=== PATIENT | male | born 1960 | race African-American/Black ===

== ENCOUNTER 2021-10-21 21:56 | Inpatient (IN) | payer BC, OTHER ==
[~2021-10-21] VITALS: Ht 175.3 cm; Wt 88.5 kg
[~2021-10-21 21:56] MED LIST: AMA4; AMLO10TA80; ENAL20TA18; ESOM40CA; SITA1TAB8
[2021-10-21] MEDS ORDERED: IPRATROPIUM BROMIDE (0.02%) 0.5MG/2.5ML NEB HHN STA (22:01)
[2021-10-21] MEDS ORDERED: METHYLPREDNISOLONE SOD SUCC 125 MG/2 ML VIAL IV STA (22:01)
[2021-10-21] MEDS ORDERED: ALBUTEROL (0.083%) 2.5MG/3ML NEB HHN STA (22:01)
[2021-10-21] MEDS ORDERED: MAGNESIUM 2 G PREMIX 50 ML IV ONE (22:15)
[2021-10-21 22:35] LABS: BASOPHILS % 0.4 % (0.0-2.0); EOSINOPHILS % 1.8 % (0.0-5.0); HEMATOCRIT. 24.9 % (42.0-52.0); HEMOGLOBIN. 8.2 g/dL (14.0-18.0); MEAN CORPUSCULAR HEMOGLOBIN 26.9 pg (28.0-32.0); MEAN CORPUSCULAR VOLUME 81.1 fL (80.0-94.0); MEAN PLATELET VOLUME 7.6 fl (7.4-10.4); MONOCYTES % 7.6 % (2.0-8.0); NEUTROPHILS % 76.2 % (40.0-76.0); PLATELET 456 x1000/uL (130-400); RED BLOOD CELL COUNT 3.06 mill/uL (4.7-6.1); RED CELL DISTRIBUTION WIDTH 15.8 % (11.6-14.6)
[2021-10-21 22:43] LABS: CHLORIDE 105 mEq/L (98-107)
[2021-10-21] MEDS ORDERED: FUROSEMIDE 40MG/4ML VIAL IVP NR (23:15)
[2021-10-21] MEDS ORDERED: VANCOMYCIN 1 G PREMIX 200 ML IV NR (23:15)
[2021-10-21] MEDS ORDERED: PIPERACILLIN/TAZ 3.375G PREMIX 50 ML IV NR (23:15)
[2021-10-21] MEDS ORDERED: NITROGLYCERIN OINT 1GM/INCH UDPKT TD NR (23:15)
[2021-10-21] MEDS ORDERED: SODIUM POLYSTYRENE SULFONATE 15 G/60 ML BOT PO ONE (23:45)
[2021-10-22] MEDS ORDERED: ASPIRIN 81MG TABLET PO SCH (05:00)
[2021-10-22] MEDS ORDERED: METOPROLOL TARTRATE 50MG TABLET PO SCH (09:00)
[2021-10-22] MEDS ORDERED: DEXTROSE 50% WATER 50ML SYRINGE IV PRN (09:45)
[2021-10-22 09:49] LABS: BG BASE EXCESS -9.2 mmol/L (-2.0-2.0); BG CARBOXYHEMOGLOBIN 0.3 % (0.5-1.5); BG DEOXYHEMOGLOBIN 0.8 % (0.0-5.0); BG FRACTION INSPIRED OXYGEN 100; BG HCO3 ACT 15.9 mmol/L (22.0-26.0); BG METHEMOGLOBIN 0.3 % (0.0-1.5); BG OXYGEN SATURATION 99.2 % (92.0-98.5); BG OXYHEMOGLOBIN 98.6 % (94.0-97.0); BG PCO2 31.3 mmHg (35.0-45.0); BG PH 7.323 (7.350-7.450); BG PO2 265.6 mmHg (75.0-100.0); BG SAMPLE SITE LEFT RADIAL; BG TOTAL HEMOGLOBIN 8.8 g/dL (12.0-18.0); BG VENT MODE MASK - BIPAP
[2021-10-22] MEDS: BLOOD SUGAR DIAGNOSTIC STRIP TEST SCH ×3 (10:04→21:05)
[2021-10-22] MEDS: INSULIN LISPRO 100 UNITS/ML SUBCUT SCH ×3 (10:10→21:05)
[2021-10-22] MEDS ORDERED: IPRATROPIUM/ALBUTEROL 0.5-3(2.5)MG/3ML NEB HHN PRN (10:45)
[2021-10-22] MEDS ORDERED: ACETAMINOPHEN 325MG TABLET PO PRN (11:15)
[2021-10-22] MEDS ORDERED: DOCUSATE SODIUM 100MG CAPSULE PO PRN (11:15)
[2021-10-22] MEDS ORDERED: CLONIDINE 0.1MG TABLET PO PRN ×2 (11:15→13:00)
[2021-10-22] MEDS ORDERED: ONDANSETRON HCL 4MG/2ML INJ IV PRN (11:15)
[2021-10-22] MEDS ORDERED: HYDROCODONE/ACETAMINOPHEN 5/325MG TABLET PO PRN (11:15)
[2021-10-22] MEDS ORDERED: MAGNESIUM/ALUMINUM HYDROXIDE/SIMETHICONE 30ML UDC PO PRN (11:15)
[2021-10-22] MEDS ORDERED: FUROSEMIDE 40MG/4ML VIAL IVP SCH (11:30)
[2021-10-22] MEDS ORDERED: NALOXONE HCL 0.4MG/ML VIAL IV PRN (11:30)
[2021-10-22] MEDS ORDERED: CEFTRIAXONE 1 G PREMIX 50 ML IV SCH (12:00)
[2021-10-22] MEDS: FUROSEMIDE 40MG/4ML VIAL IVP SCH ×2 (12:14→18:02)
[2021-10-22 14:13] LABS: TOTAL IRON BINDING CAPACITY 210 ug/dL (250-450)
[2021-10-22 14:30] LABS: FOLIC ACID (FOLATE) SERUM 17.3 ng/mL (>5.38)
[2021-10-22] MEDS: HYDRALAZINE HCL 50MG TABLET PO SCH ×2 (14:51→22:26)
[2021-10-22] MEDS: CITRIC ACID/SODIUM CITRATE SOLN 30ML UDC PO SCH ×2 (14:51→18:02)
[2021-10-22 16:00] VITALS: BP 120/54
[2021-10-22 16:16] VITALS: BP 120/94
[2021-10-22] MEDS ORDERED: HYDR100T26 MT (17:03)
[2021-10-22] MEDS ORDERED: PRAV10TA35 PO (17:03)
[2021-10-22] MEDS ORDERED: CHOL400D7 PO (17:03)
[2021-10-22] MEDS ORDERED: SITA25TA3 PO (17:03)
[2021-10-22] MEDS ORDERED: PRO1 PO (17:03)
[2021-10-22] MEDS ORDERED: PATI16.8 PO (17:03)
[2021-10-22] MEDS ORDERED: CLOP-31 MT (17:03)
[2021-10-22] MEDS ORDERED: SODI650T PO (17:03)
[2021-10-22 17:05] LABS: CLARITY URINE CLEAR (CLEAR); COLOR URINE YELLOW (YELLOW); KETONES URINE NEGATIVE (NEGATIVE); LEUKOCYTE ESTERASE URINE NEGATIVE (NEGATIVE); NITRITE URINE NEGATIVE (NEGATIVE); OCCULT BLOOD URINE NEGATIVE (NEGATIVE); PROTEIN URINE 3+ (NEGATIVE); SPECIFIC GRAVITY URINE 1.016 (1.005-1.030); UROBILINOGEN URINE 0.2 E.U./dL (0.2-1.0)
[2021-10-22 17:26] LABS: *AMPHETAMINES SCREEN URINE NEGATIVE (NEGATIVE); *BARBITURATES SCREEN URINE NEGATIVE (NEGATIVE); *BENZODIAZEPINES SCREEN URINE NEGATIVE (NEGATIVE); *COCAINE SCREEN URINE NEGATIVE (NEGATIVE); METHADONE URINE SCREEN NEGATIVE (NEGATIVE)
[2021-10-22 17:27] LABS: CANNABINOID URINE SCREEN NEGATIVE (NEGATIVE); OPIATES URINE SCREEN NEGATIVE (NEGATIVE); PHENCYCLIDINE URINE SCREEN NEGATIVE (NEGATIVE)
[2021-10-22 20:00] VITALS: BP 121/49
[2021-10-22] MEDS: CARVEDILOL 12.5MG TABLET PO SCH (21:04)
[2021-10-22] MEDS ORDERED: VANCOMYCIN 1500MG in DEXTROSE 5% WATER 250ML IV NR (23:00)
[2021-10-22 23:18] LABS: CREATINE KINASE MB FRACTION 25.5 ng/mL (0.5-3.6)
[2021-10-23] VITALS: BP 103/43
[2021-10-23 04:00] VITALS: BP 112/54
[2021-10-23] MEDS: BLOOD SUGAR DIAGNOSTIC STRIP TEST SCH ×4 (05:50→21:15)
[2021-10-23] MEDS: HYDRALAZINE HCL 50MG TABLET PO SCH ×3 (05:50→21:15)
[2021-10-23] MEDS: INSULIN LISPRO 100 UNITS/ML SUBCUT SCH ×4 (05:50→21:17)
[2021-10-23 06:21] LABS: CHLORIDE 108 mEq/L (98-107)
[2021-10-23 06:22] LABS: BASOPHILS % 0.4 % (0.0-2.0); EOSINOPHILS % 1.4 % (0.0-5.0); HEMOGLOBIN. 7.3 g/dL (14.0-18.0); MEAN CORPUSCULAR HEMOGLOBIN 27.4 pg (28.0-32.0); MEAN CORPUSCULAR VOLUME 82.5 fL (80.0-94.0); MEAN PLATELET VOLUME 7.4 fl (7.4-10.4); MONOCYTES % 10.9 % (2.0-8.0); NEUTROPHILS % 69.3 % (40.0-76.0); PLATELET 401 x1000/uL (130-400); RED BLOOD CELL COUNT 2.67 mill/uL (4.7-6.1)
[2021-10-23 06:31] LABS: LDL CHOLESTEROL 111 mg/dL (5-100); PHOSPHORUS 6.6 mg/dL (2.5-4.9)
[2021-10-23 06:32] LABS: HDL CHOLESTEROL 50 mg/dL (40-59)
[2021-10-23 06:33] LABS: T4 FREE 0.93 ng/dL (0.76-1.46)
[2021-10-23 08:00] VITALS: BP 130/57
[2021-10-23] MEDS: PANTOPRAZOLE SODIUM 40 MG/VIAL IV SCH (09:35)
[2021-10-23] MEDS: METOLAZONE 2.5MG TABLET PO SCH (09:35)
[2021-10-23] MEDS: FUROSEMIDE 40MG/4ML VIAL IVP SCH ×2 (09:35→17:56)
[2021-10-23] MEDS: CITRIC ACID/SODIUM CITRATE SOLN 30ML UDC PO SCH ×3 (09:35→17:56)
[2021-10-23] MEDS: CARVEDILOL 12.5MG TABLET PO SCH (09:36)
[2021-10-23 12:00] VITALS: BP 138/53
[2021-10-23] MEDS: CEFTRIAXONE 1,000 MG in DEXTROSE 5% WATER 50 ML IV SCH (12:45)
[2021-10-23] MEDS: CALCIUM ACETATE 667MG CAPSULE PO SCH ×2 (12:45→17:56)
[2021-10-23 16:09] VITALS: BP 124/74
[2021-10-23] MEDS: DILTIAZEM HCL 60MG TABLET PO SCH (17:56)
[2021-10-23 20:00] VITALS: BP 148/55
[2021-10-23] MEDS: EPOETIN ALFA-EPBX 10,000 UNIT/ML VIAL SUBCUT SCH ×2 (21:00→21:15)
[2021-10-24] VITALS: BP 133/54
[2021-10-24 04:00] VITALS: BP 114/54
[2021-10-24] MEDS: HYDRALAZINE HCL 50MG TABLET PO SCH ×3 (06:10→21:33)
[2021-10-24] MEDS: BLOOD SUGAR DIAGNOSTIC STRIP TEST SCH ×4 (06:10→20:57)
[2021-10-24] MEDS: DILTIAZEM HCL 60MG TABLET PO SCH ×5 (06:10→23:36)
[2021-10-24] MEDS: FUROSEMIDE 40MG/4ML VIAL IVP SCH ×2 (06:10→17:50)
[2021-10-24] MEDS: CALCIUM ACETATE 667MG CAPSULE PO SCH ×3 (06:10→17:49)
[2021-10-24] MEDS: INSULIN LISPRO 100 UNITS/ML SUBCUT SCH ×4 (06:13→21:34)
[2021-10-24 07:38] LABS: CHLORIDE 105 mEq/L (98-107)
[2021-10-24 07:41] LABS: BASOPHILS % 0.5 % (0.0-2.0); EOSINOPHILS % 2.4 % (0.0-5.0); HEMATOCRIT. 22.5 % (42.0-52.0); HEMOGLOBIN. 7.6 g/dL (14.0-18.0); LYMPHOCYTES % 24.2 % (20.0-50.0); MEAN CORPUSCULAR HEMOGLOBIN 27.3 pg (28.0-32.0); MEAN CORPUSCULAR VOLUME 80.5 fL (80.0-94.0); MEAN PLATELET VOLUME 7.5 fl (7.4-10.4); MONOCYTES % 9.1 % (2.0-8.0); NEUTROPHILS % 63.8 % (40.0-76.0); PLATELET 422 x1000/uL (130-400); RED BLOOD CELL COUNT 2.79 mill/uL (4.7-6.1); RED CELL DISTRIBUTION WIDTH 16.2 % (11.6-14.6)
[2021-10-24 07:53] LABS: PHOSPHORUS 6.5 mg/dL (2.5-4.9)
[2021-10-24 08:00] VITALS: BP 122/49
[2021-10-24] MEDS: PANTOPRAZOLE SODIUM 40 MG/VIAL IV SCH (10:06)
[2021-10-24] MEDS: CITRIC ACID/SODIUM CITRATE SOLN 30ML UDC PO SCH ×3 (10:06→17:49)
[2021-10-24] MEDS: METOLAZONE 2.5MG TABLET PO SCH (10:06)
[2021-10-24 12:00] VITALS: BP 132/53
[2021-10-24] MEDS: CEFTRIAXONE 1,000 MG in DEXTROSE 5% WATER 50 ML IV SCH (12:35)
[2021-10-24 16:00] VITALS: BP 127/55
[2021-10-24 20:00] VITALS: BP 145/56
[2021-10-25] VITALS: BP 149/61
[2021-10-25 04:00] VITALS: BP 129/54
[2021-10-25] MEDS: DILTIAZEM HCL 60MG TABLET PO SCH ×4 (05:19→23:45)
[2021-10-25] MEDS: HYDRALAZINE HCL 50MG TABLET PO SCH ×3 (05:20→23:45)
[2021-10-25] MEDS: INSULIN LISPRO 100 UNITS/ML SUBCUT SCH ×4 (06:45→23:49)
[2021-10-25] MEDS: BLOOD SUGAR DIAGNOSTIC STRIP TEST SCH ×4 (06:46→21:00)
[2021-10-25] MEDS: CALCIUM ACETATE 667MG CAPSULE PO SCH ×3 (06:46→18:18)
[2021-10-25] MEDS: FUROSEMIDE 40MG/4ML VIAL IVP SCH ×2 (06:46→18:18)
[2021-10-25 07:15] LABS: BASOPHILS % 0.6 % (0.0-2.0); EOSINOPHILS % 1.9 % (0.0-5.0); HEMATOCRIT. 21.1 % (42.0-52.0); HEMOGLOBIN. 7.3 g/dL (14.0-18.0); LYMPHOCYTES % 18.6 % (20.0-50.0); MEAN CORPUSCULAR HEMOGLOBIN 27.7 pg (28.0-32.0); MEAN CORPUSCULAR VOLUME 79.7 fL (80.0-94.0); MEAN PLATELET VOLUME 7.4 fl (7.4-10.4); MONOCYTES % 9.8 % (2.0-8.0); NEUTROPHILS % 69.1 % (40.0-76.0); PLATELET 398 x1000/uL (130-400); RED BLOOD CELL COUNT 2.64 mill/uL (4.7-6.1); RED CELL DISTRIBUTION WIDTH 16.6 % (11.6-14.6)
[2021-10-25 08:00] VITALS: BP 129/44
[2021-10-25] MEDS: METOLAZONE 2.5MG TABLET PO SCH (09:13)
[2021-10-25] MEDS: CITRIC ACID/SODIUM CITRATE SOLN 30ML UDC PO SCH ×3 (09:13→18:18)
[2021-10-25 12:00] VITALS: BP 136/58
[2021-10-25] MEDS: CEFTRIAXONE 1,000 MG in DEXTROSE 5% WATER 50 ML IV SCH (12:24)
[2021-10-25] MEDS: PANTOPRAZOLE SODIUM 40 MG/VIAL IV SCH (12:29)
[2021-10-25 16:00] VITALS: BP 130/57
[2021-10-25 20:00] VITALS: BP 150/69
[2021-10-26] MEDS: EPOETIN ALFA-EPBX 10,000 UNIT/ML VIAL SUBCUT SCH
[2021-10-26 00:03] VITALS: BP 138/56
[2021-10-26] MEDS: HYDRALAZINE HCL 50MG TABLET PO SCH ×2 (06:07→15:33)
[2021-10-26] MEDS: DILTIAZEM HCL 60MG TABLET PO SCH ×3 (06:08→17:03)
[2021-10-26] MEDS: BLOOD SUGAR DIAGNOSTIC STRIP TEST SCH ×3 (06:10→16:46)
[2021-10-26] MEDS: CALCIUM ACETATE 667MG CAPSULE PO SCH ×3 (06:49→16:47)
[2021-10-26] MEDS: FUROSEMIDE 40MG/4ML VIAL IVP SCH ×2 (06:50→16:47)
[2021-10-26] MEDS: INSULIN LISPRO 100 UNITS/ML SUBCUT SCH ×3 (06:50→16:52)
[2021-10-26 08:00] VITALS: BP 141/54
[2021-10-26] MEDS ORDERED: LIDOCAINE HCL 1% 10 MG/ML 10ML VIAL ONE (08:30)
[2021-10-26 09:46] LABS: BASOPHILS % 0.6 % (0.0-2.0); EOSINOPHILS % 2.1 % (0.0-5.0); HEMATOCRIT. 21.3 % (42.0-52.0); HEMOGLOBIN. 7.4 g/dL (14.0-18.0); LYMPHOCYTES % 20.7 % (20.0-50.0); MEAN CORPUSCULAR HEMOGLOBIN 27.8 pg (28.0-32.0); MEAN CORPUSCULAR VOLUME 80.3 fL (80.0-94.0); MEAN PLATELET VOLUME 7.7 fl (7.4-10.4); MONOCYTES % 10.4 % (2.0-8.0); NEUTROPHILS % 66.2 % (40.0-76.0); PLATELET 392 x1000/uL (130-400); RED BLOOD CELL COUNT 2.65 mill/uL (4.7-6.1); RED CELL DISTRIBUTION WIDTH 16.1 % (11.6-14.6)
[2021-10-26] MEDS: CITRIC ACID/SODIUM CITRATE SOLN 30ML UDC PO SCH ×3 (09:55→16:56)
[2021-10-26] MEDS: METOLAZONE 2.5MG TABLET PO SCH (09:55)
[2021-10-26] MEDS: PANTOPRAZOLE SODIUM 40 MG/VIAL IV SCH (09:55)
[2021-10-26 12:00] VITALS: BP 148/62
[2021-10-26] MEDS ORDERED: FURO-151 MT (12:53)
[2021-10-26 13:50] VITALS: BP 148/62
[2021-10-26] MEDS: CEFTRIAXONE 1,000 MG in DEXTROSE 5% WATER 50 ML IV SCH (15:32)
== END 2021-10-26 17:11 | disposition home health service (06) | DRG 871 ==
LOC: ER 21:56 → MICUSO 10-22 00:42 → EDBEDREQ 10-22 00:44 → EDBEDREQSVC 10-22 00:48 → EDBEDREQTM 10-22 00:48 → EDBEDREQ 10-22 00:48 → 7EST 10-22 14:45
PROVIDERS: ADMIT Internal Medicine; ATTEND Internal Medicine
PROC: 5A09357 Assistance with Respiratory Ventilation, Less than 24 Consecutive Hours, Continuous Positive Airway Pressure (ICD-10-PCS; 2021-10-21)
PROC: 02HV33Z Insertion of Infusion Device into Superior Vena Cava, Percutaneous Approach (ICD-10-PCS; principal; 2021-10-26)
PROC: B548ZZA Ultrasonography of Superior Vena Cava, Guidance (ICD-10-PCS; 2021-10-26)
DX: A41.1 Sepsis due to other specified staphylococcus (principal); I21.4 Non-ST elevation (NSTEMI) myocardial infarction; J18.9 Pneumonia, unspecified organism; J96.00 Acute respiratory failure, unspecified whether with hypoxia or hypercapnia; I13.0 Hypertensive heart and chronic kidney disease with heart failure and stage 1 through stage 4 chronic kidney disease, or unspecified chronic kidney disease; E44.0 Moderate protein-calorie malnutrition; N17.9 Acute kidney failure, unspecified; N18.4 Chronic kidney disease, stage 4 (severe); I50.30 Unspecified diastolic (congestive) heart failure; I42.9 Cardiomyopathy, unspecified; D64.9 Anemia, unspecified; E78.5 Hyperlipidemia, unspecified; E87.5 Hyperkalemia; Z20.822 Contact with and (suspected) exposure to COVID-19; R74.01 Elevation of levels of liver transaminase levels; I36.1 Nonrheumatic tricuspid (valve) insufficiency; I25.10 Atherosclerotic heart disease of native coronary artery without angina pectoris; I27.20 Pulmonary hypertension, unspecified; E11.22 Type 2 diabetes mellitus with diabetic chronic kidney disease; E11.65 Type 2 diabetes mellitus with hyperglycemia; I25.118 Atherosclerotic heart disease of native coronary artery with other forms of angina pectoris; Z83.3 Family history of diabetes mellitus; Z87.01 Personal history of pneumonia (recurrent); Z87.891 Personal history of nicotine dependence; Z79.899 Other long term (current) drug therapy; Z68.28 Body mass index [BMI] 28.0-28.9, adult; E11.51 Type 2 diabetes mellitus with diabetic peripheral angiopathy without gangrene
CPT/HCPCS: 36415; 36600; 71045; 76700; 76937; 80048; 80053; 80061; 80076; 80202; 80305; 81003; 82375; 82550; 82553; 82607; 82728; 82746; 82805; 82962; 83036; 83540; 83550; 83605; 83735; 83880; 84100; 84145; 84439; 84443; 84484; 85025; 85384; 86140; 87077; 87186; 93005; 93306; 93970; 94640; 94660; 97161; 99291; C1725; C9113; J0696; J0885; J1815; J1940; J2543; J2930; J3370; J3475; J3490; J7060; U0003; U0005

== ENCOUNTER 2021-10-29 07:45 | Inpatient (IN) | payer BC ==
[~2021-10-29] VITALS: Ht 175.3 cm; Wt 93.4 kg
[~2021-10-29 07:45] MED LIST changes: +CHOL400D7 PO; +CLOP-31 MT; +FURO-151 MT; +HYDR100T26 MT; +PATI16.8 PO; +PRAV10TA35 PO; +PRO1 PO; +SITA25TA3 PO; +SODI650T PO
[2021-10-29] MEDS ORDERED: ASPIRIN 81MG TABLET PO ONE (08:15)
[2021-10-29] MEDS ORDERED: NITROGLYCERIN 0.4MG TABLET SL SL PRN ×2 (08:15→12:30)
[2021-10-29 08:44] LABS: BASOPHILS % 0.6 % (0.0-2.0); EOSINOPHILS % 0.9 % (0.0-5.0); HEMATOCRIT. 27.1 % (42.0-52.0); HEMOGLOBIN. 9.1 g/dL (14.0-18.0); LYMPHOCYTES % 8.7 % (20.0-50.0); MEAN CORPUSCULAR HEMOGLOBIN 27.8 pg (28.0-32.0); MEAN CORPUSCULAR VOLUME 83.3 fL (80.0-94.0); MEAN PLATELET VOLUME 7.5 fl (7.4-10.4); MONOCYTES % 7.8 % (2.0-8.0); PLATELET 423 x1000/uL (130-400); RED BLOOD CELL COUNT 3.26 mill/uL (4.7-6.1)
[2021-10-29 08:45] LABS: CHLORIDE 97 mEq/L (98-107)
[2021-10-29] MEDS ORDERED: DOCUSATE SODIUM 100MG CAPSULE PO PRN (12:30)
[2021-10-29] MEDS ORDERED: ENOXAPARIN 40MG/0.4ML SYR SUBCUT SCH (12:30)
[2021-10-29] MEDS ORDERED: GUAIFENESIN 200MG/10ML SUGAR FREE UDC PO PRN (12:30)
[2021-10-29] MEDS ORDERED: IPRATROPIUM/ALBUTEROL 0.5-3(2.5)MG/3ML NEB NEB PRN (12:30)
[2021-10-29] MEDS ORDERED: ZOLPIDEM TARTRATE 5MG TABLET PO PRN (12:30)
[2021-10-29] MEDS ORDERED: ACETAMINOPHEN 325MG TABLET PO PRN ×2 (12:30)
[2021-10-29] MEDS ORDERED: TRAMADOL 50MG TABLET PO PRN (12:30)
[2021-10-29] MEDS ORDERED: MAGNESIUM/ALUMINUM HYDROXIDE/SIMETHICONE 30ML UDC PO PRN (12:30)
[2021-10-29] MEDS ORDERED: CLONIDINE 0.1MG TABLET PO PRN (12:30)
[2021-10-29] MEDS ORDERED: DEXTROSE 50% WATER 50ML SYRINGE IV PRN (12:30)
[2021-10-29] MEDS ORDERED: ONDANSETRON HCL 4MG/2ML INJ IV PRN (12:30)
[2021-10-29] MEDS ORDERED: NALOXONE HCL 0.4MG/ML VIAL IV PRN (13:30)
[2021-10-29] MEDS: BLOOD SUGAR DIAGNOSTIC STRIP TEST SCH ×3 (14:20→21:15)
[2021-10-29] MEDS: INSULIN LISPRO 100 UNITS/ML SUBCUT SCH ×3 (14:25→21:15)
[2021-10-29] MEDS: AMLODIPINE 10MG TABLET PO SCH (14:53)
[2021-10-29] MEDS: FAMOTIDINE 20MG TABLET PO SCH (15:16)
[2021-10-29] MEDS: CLOPIDOGREL 75MG TABLET PO SCH (16:22)
[2021-10-29] MEDS: ENOXAPARIN 30MG/0.3ML SYR SUBCUT SCH (17:07)
[2021-10-29] MEDS: CARVEDILOL 3.125 MG TABLET PO SCH (18:51)
[2021-10-29] MEDS: FUROSEMIDE 40MG/4ML VIAL IVP SCH (21:14)
[2021-10-29] MEDS: ASCORBIC ACID 500 MG TABLET PO SCH (21:14)
[2021-10-29] MEDS: LISINOPRIL 20MG TABLET PO SCH (21:15)
[2021-10-29 23:25] LABS: CREATINE KINASE MB FRACTION 19.7 ng/mL (0.5-3.6)
[2021-10-29 23:35] LABS: FOLIC ACID (FOLATE) SERUM 12.4 ng/mL (>5.38)
[2021-10-30] MEDS: INSULIN LISPRO 100 UNITS/ML SUBCUT SCH ×4 (06:51→20:39)
[2021-10-30] MEDS: BLOOD SUGAR DIAGNOSTIC STRIP TEST SCH ×4 (06:51→20:39)
[2021-10-30] MEDS: CARVEDILOL 3.125 MG TABLET PO SCH ×2 (06:51→17:31)
[2021-10-30] MEDS: ASCORBIC ACID 500 MG TABLET PO SCH ×4 (09:00→22:06)
[2021-10-30] MEDS: ENOXAPARIN 30MG/0.3ML SYR SUBCUT SCH ×2 (09:00→11:30)
[2021-10-30 09:30] VITALS: BP 137/62
[2021-10-30 10:00] VITALS: BP 137/62
[2021-10-30] MEDS ORDERED: CEFTRIAXONE 1 G PREMIX 50 ML IV SCH (10:45)
[2021-10-30] MEDS: FAMOTIDINE 20MG TABLET PO SCH (11:28)
[2021-10-30] MEDS: CHOLECALCIFEROL (D3) 1000 UNIT TABLET PO SCH (11:28)
[2021-10-30] MEDS: ZINC SULFATE 220 MG ( 50 ) CAPSULE PO SCH (11:28)
[2021-10-30] MEDS: AMLODIPINE 10MG TABLET PO SCH (11:29)
[2021-10-30] MEDS: FUROSEMIDE 40MG/4ML VIAL IVP SCH ×2 (11:29→22:06)
[2021-10-30] MEDS: LISINOPRIL 20MG TABLET PO SCH (11:29)
[2021-10-30 12:00] VITALS: BP 137/58
[2021-10-30] MEDS ORDERED: CEFTRIAXONE 1,000 MG in DEXTROSE 5% WATER 50 ML IV SCH (12:00)
[2021-10-30 13:19] LABS: BASOPHILS % 0.7 % (0.0-2.0); EOSINOPHILS % 2.5 % (0.0-5.0); HEMATOCRIT. 25.3 % (42.0-52.0); HEMOGLOBIN. 8.5 g/dL (14.0-18.0); LYMPHOCYTES % 14.1 % (20.0-50.0); MEAN CORPUSCULAR HEMOGLOBIN 27.5 pg (28.0-32.0); MEAN CORPUSCULAR VOLUME 81.8 fL (80.0-94.0); MEAN PLATELET VOLUME 7.6 fl (7.4-10.4); MONOCYTES % 9.4 % (2.0-8.0); NEUTROPHILS % 73.3 % (40.0-76.0); PLATELET 411 x1000/uL (130-400); RED CELL DISTRIBUTION WIDTH 17.4 % (11.6-14.6)
[2021-10-30 13:26] LABS: CHLORIDE 102 mEq/L (98-107)
[2021-10-30 13:30] LABS: PARTIAL THROMBOPLASTIN TIME 27.1 sec (23.4-31.0); PROTHROMBIN TIME 10.7 sec (9.6-11.0)
[2021-10-30 13:32] LABS: PHOSPHORUS 4.9 mg/dL (2.5-4.9)
[2021-10-30] MEDS: ISOSORBIDE MONONITRATE 60MG TABLET SR 24HR PO SCH (13:45)
[2021-10-30] MEDS: HYDRALAZINE HCL 50MG TABLET PO SCH ×2 (14:00→17:00)
[2021-10-30] MEDS ORDERED: LIDOCAINE HCL 1% 10 MG/ML 10ML VIAL ONE (14:19)
[2021-10-30 14:44] LABS: HEPATITIS B SURFACE ANTIGEN NEGATIVE
[2021-10-30] MEDS: CLOPIDOGREL 75MG TABLET PO SCH (15:43)
[2021-10-30 16:00] VITALS: BP 150/64
[2021-10-30 20:00] VITALS: BP 130/52
[2021-10-30] MEDS ORDERED: IPRATROPIUM/ALBUTEROL 0.5-3(2.5)MG/3ML NEB HHN PRN (20:15)
[2021-10-30] MEDS: ATORVASTATIN CALCIUM 20MG TABLET PO SCH (22:06)
[2021-10-30] MEDS: AMLODIPINE 5MG TABLET PO SCH (22:07)
[2021-10-31] VITALS: BP 148/56
[2021-10-31 04:00] VITALS: BP 143/58
[2021-10-31] MEDS: CARVEDILOL 3.125 MG TABLET PO SCH ×2 (06:06→17:57)
[2021-10-31] MEDS: BLOOD SUGAR DIAGNOSTIC STRIP TEST SCH ×4 (06:10→21:54)
[2021-10-31] MEDS: INSULIN LISPRO 100 UNITS/ML SUBCUT SCH ×4 (06:49→22:03)
[2021-10-31 08:00] VITALS: BP 134/46
[2021-10-31] MEDS: ISOSORBIDE MONONITRATE 60MG TABLET SR 24HR PO SCH (09:00)
[2021-10-31] MEDS: ENOXAPARIN 30MG/0.3ML SYR SUBCUT SCH (09:00)
[2021-10-31] MEDS: ASCORBIC ACID 500 MG TABLET PO SCH ×2 (09:00→21:00)
[2021-10-31] MEDS: AMLODIPINE 5MG TABLET PO SCH ×2 (09:00→21:51)
[2021-10-31] MEDS: CHOLECALCIFEROL (D3) 1000 UNIT TABLET PO SCH (09:04)
[2021-10-31] MEDS: HYDRALAZINE HCL 50MG TABLET PO SCH ×3 (09:04→17:00)
[2021-10-31] MEDS: ZINC SULFATE 220 MG ( 50 ) CAPSULE PO SCH (09:04)
[2021-10-31] MEDS: FAMOTIDINE 20MG TABLET PO SCH (09:04)
[2021-10-31] MEDS: CEFTRIAXONE 1,000 MG in DEXTROSE 5% WATER 50 ML IV SCH (09:04)
[2021-10-31] MEDS: CLOPIDOGREL 75MG TABLET PO SCH (09:04)
[2021-10-31] MEDS: FUROSEMIDE 40MG/4ML VIAL IVP SCH ×2 (09:05→21:51)
[2021-10-31 12:00] VITALS: BP 153/51
[2021-10-31 16:30] VITALS: BP 135/46
[2021-10-31 20:00] VITALS: BP 144/55
[2021-10-31] MEDS: ATORVASTATIN CALCIUM 20MG TABLET PO SCH (21:51)
[2021-11-01] VITALS: BP 127/54
[2021-11-01 04:00] VITALS: BP 129/51
[2021-11-01] MEDS: BLOOD SUGAR DIAGNOSTIC STRIP TEST SCH ×4 (06:01→20:20)
[2021-11-01] MEDS: CARVEDILOL 3.125 MG TABLET PO SCH ×2 (06:01→17:26)
[2021-11-01] MEDS: INSULIN LISPRO 100 UNITS/ML SUBCUT SCH ×4 (06:47→20:20)
[2021-11-01 08:00] VITALS: BP 115/77
[2021-11-01] MEDS: ENOXAPARIN 40MG/0.4ML SYR SUBCUT SCH (09:00)
[2021-11-01] MEDS: ISOSORBIDE MONONITRATE 60MG TABLET SR 24HR PO SCH (09:00)
[2021-11-01] MEDS: ASCORBIC ACID 500 MG TABLET PO SCH ×2 (09:00→20:20)
[2021-11-01] MEDS: FAMOTIDINE 20MG TABLET PO SCH (09:18)
[2021-11-01] MEDS: CLOPIDOGREL 75MG TABLET PO SCH (09:18)
[2021-11-01] MEDS: CEFTRIAXONE 1,000 MG in DEXTROSE 5% WATER 50 ML IV SCH (09:18)
[2021-11-01] MEDS: HYDRALAZINE HCL 50MG TABLET PO SCH ×3 (09:24→17:25)
[2021-11-01] MEDS: AMLODIPINE 5MG TABLET PO SCH ×2 (09:25→20:19)
[2021-11-01] MEDS: CHOLECALCIFEROL (D3) 1000 UNIT TABLET PO SCH (09:26)
[2021-11-01] MEDS: FUROSEMIDE 40MG/4ML VIAL IVP SCH ×2 (09:27→20:19)
[2021-11-01] MEDS: ZINC SULFATE 220 MG ( 50 ) CAPSULE PO SCH (09:27)
[2021-11-01 11:57] LABS: HEMATOCRIT 26.1 % (42.0-52.0); HEMOGLOBIN 8.8 g/dL (14.0-18.0); MEAN CORPUSCULAR HEMOGLOBIN 27.9 pg (28.0-32.0); MEAN CORPUSCULAR VOLUME 82.9 fL (80.0-94.0); PLATELET 349 x1000/uL (130-400); RED BLOOD CELL COUNT 3.15 mill/uL (4.7-6.1); RED CELL DISTRIBUTION WIDTH 17.5 % (11.6-14.6)
[2021-11-01 12:00] VITALS: BP 112/55
[2021-11-01] MEDS: IPRATROPIUM/ALBUTEROL 0.5-3(2.5)MG/3ML NEB HHN SCH ×2 (12:00→18:00)
[2021-11-01 16:00] VITALS: BP 126/50
[2021-11-01 20:00] VITALS: BP 125/48
[2021-11-01] MEDS: ATORVASTATIN CALCIUM 20MG TABLET PO SCH (20:19)
[2021-11-02] VITALS: BP_SYST 127; BP_SYST 134; BP_DIAS 45; BP_DIAS 54
[2021-11-02 03:58] VITALS: BP 132/45
[2021-11-02] MEDS: BLOOD SUGAR DIAGNOSTIC STRIP TEST SCH (06:00)
[2021-11-02] MEDS: CARVEDILOL 3.125 MG TABLET PO SCH (06:00)
[2021-11-02] MEDS: INSULIN LISPRO 100 UNITS/ML SUBCUT SCH (06:46)
[2021-11-02 08:00] VITALS: BP 109/40
[2021-11-02] MEDS: IPRATROPIUM/ALBUTEROL 0.5-3(2.5)MG/3ML NEB HHN SCH ×2 (08:00)
[2021-11-02] MEDS: ENOXAPARIN 40MG/0.4ML SYR SUBCUT SCH (09:00)
[2021-11-02] MEDS: AMLODIPINE 5MG TABLET PO SCH (09:00)
[2021-11-02] MEDS: ASCORBIC ACID 500 MG TABLET PO SCH (09:00)
[2021-11-02] MEDS: ISOSORBIDE MONONITRATE 60MG TABLET SR 24HR PO SCH (09:00)
[2021-11-02] MEDS: HYDRALAZINE HCL 50MG TABLET PO SCH ×2 (09:00→11:10)
[2021-11-02] MEDS: CHOLECALCIFEROL (D3) 1000 UNIT TABLET PO SCH (09:21)
[2021-11-02] MEDS: ZINC SULFATE 220 MG ( 50 ) CAPSULE PO SCH (09:21)
[2021-11-02] MEDS: FUROSEMIDE 40MG/4ML VIAL IVP SCH (09:21)
[2021-11-02] MEDS: FAMOTIDINE 20MG TABLET PO SCH (09:24)
[2021-11-02] MEDS: CLOPIDOGREL 75MG TABLET PO SCH (09:25)
[2021-11-02] MEDS: CEFTRIAXONE 1,000 MG in DEXTROSE 5% WATER 50 ML IV SCH (09:27)
[2021-11-02 11:08] VITALS: BP 159/59
[2021-11-02 11:45] VITALS: BP 159/59
== END 2021-11-02 12:08 | disposition home or self-care (01) | DRG 280 ==
LOC: ER 09:20 → MICUSO 10:08 → EDBEDREQ 10:10 → EDBEDREQTM 10:10 → SUPCPDRO 12:17 → 8WST 10-30 10:52
PROVIDERS: ADMIT Internal Medicine; ATTEND Internal Medicine
PROC: 02HV33Z Insertion of Infusion Device into Superior Vena Cava, Percutaneous Approach (ICD-10-PCS; principal; 2021-10-30)
PROC: B548ZZA Ultrasonography of Superior Vena Cava, Guidance (ICD-10-PCS; 2021-10-30)
PROC: 5A1D70Z Performance of Urinary Filtration, Intermittent, Less than 6 Hours Per Day (ICD-10-PCS; 2021-10-30)
PROC: 5A1D70Z Performance of Urinary Filtration, Intermittent, Less than 6 Hours Per Day (ICD-10-PCS; 2021-10-31)
PROC: 5A1D70Z Performance of Urinary Filtration, Intermittent, Less than 6 Hours Per Day (ICD-10-PCS; 2021-11-01)
DX: I13.0 Hypertensive heart and chronic kidney disease with heart failure and stage 1 through stage 4 chronic kidney disease, or unspecified chronic kidney disease (principal); J96.01 Acute respiratory failure with hypoxia; I21.4 Non-ST elevation (NSTEMI) myocardial infarction; N17.0 Acute kidney failure with tubular necrosis; I50.43 Acute on chronic combined systolic (congestive) and diastolic (congestive) heart failure; J18.9 Pneumonia, unspecified organism; E87.1 Hypo-osmolality and hyponatremia; E44.0 Moderate protein-calorie malnutrition; N18.4 Chronic kidney disease, stage 4 (severe); E66.9 Obesity, unspecified; R74.01 Elevation of levels of liver transaminase levels; E83.51 Hypocalcemia; D64.9 Anemia, unspecified; E11.22 Type 2 diabetes mellitus with diabetic chronic kidney disease; E11.51 Type 2 diabetes mellitus with diabetic peripheral angiopathy without gangrene; J44.9 Chronic obstructive pulmonary disease, unspecified; I27.20 Pulmonary hypertension, unspecified; E11.65 Type 2 diabetes mellitus with hyperglycemia; E78.00 Pure hypercholesterolemia, unspecified; E78.5 Hyperlipidemia, unspecified; I25.5 Ischemic cardiomyopathy; Z20.822 Contact with and (suspected) exposure to COVID-19; I07.1 Rheumatic tricuspid insufficiency; I25.118 Atherosclerotic heart disease of native coronary artery with other forms of angina pectoris; Z79.4 Long term (current) use of insulin; Z83.3 Family history of diabetes mellitus; Z86.14 Personal history of Methicillin resistant Staphylococcus aureus infection; Z87.01 Personal history of pneumonia (recurrent); Z88.1 Allergy status to other antibiotic agents; Z79.899 Other long term (current) drug therapy; Z89.421 Acquired absence of other right toe(s); Z89.432 Acquired absence of left foot; Z68.30 Body mass index [BMI] 30.0-30.9, adult
CPT/HCPCS: 36415; 36556; 71045; 76937; 80048; 80053; 82550; 82553; 82607; 82746; 82962; 83540; 83550; 83605; 83615; 83735; 83880; 84100; 84145; 84443; 84484; 85025; 85027; 86705; 86709; 86803; 87340; 87426; 93005; 93970; 97161; 99291; C1752; J0696; J1650; J1815; J1940; J3490; J7060